=== PATIENT | male | born 1945 | race Caucasian/White ===

== ENCOUNTER 2021-12-26 09:49 | Emergency (ER) | payer OTHER ==
[2021-12-26 10:17] LABS: HEMOGLOBIN 12.2 gm/dl (14.0-17.5); RED BLOOD COUNT 3.85 M/UL (4.20-5.50); WHITE BLOOD COUNT 19.1 K/UL (4.5-11.0)
== END 2021-12-26 13:55 | disposition short-term general hospital (02) ==
LOC: ER1 09:49
PROVIDERS: Emergency Medicine
DX: A41.9 Sepsis, unspecified organism (principal); R65.20 Severe sepsis without septic shock; I48.91 Unspecified atrial fibrillation; K72.00 Acute and subacute hepatic failure without coma; E87.2 Acidosis; I11.0 Hypertensive heart disease with heart failure; I50.30 Unspecified diastolic (congestive) heart failure; E78.5 Hyperlipidemia, unspecified; E03.9 Hypothyroidism, unspecified; K21.9 Gastro-esophageal reflux disease without esophagitis; E11.9 Type 2 diabetes mellitus without complications; Z79.899 Other long term (current) drug therapy; Z20.822 Contact with and (suspected) exposure to COVID-19
CPT/HCPCS: ECHO; 36600; 70450; 71045; 80053; 81001; 82550; 82553; 82803; 82962; 83605; 83880; 84439; 84443; 84484; 85025; 85610; 85730; 87040; 87086; 93005; 93306; 96374; 96375; 99285; J1160; J2543; J3370; J7030; U0002